=== PATIENT | male | born 1930 | race Caucasian/White ===

== ENCOUNTER 2020-02-29 17:33 | Inpatient (IN) ==
[2020-02-29] MEDS ORDERED: *HR* Metoprolol 5 MG/5 ML VIAL IVP ONE ×2 (18:34→20:37)
[2020-02-29 18:36] LABS: Basophils % 0.3 %; Eosinophils # 0.1 K/mcL (0.0-0.6); Eosinophils % 2.3 %; Hematocrit 38.3 % (37.5-50.1); Hemoglobin 11.8 g/dL (12.9-16.9); Immature Granulocytes % 0.2 % (0-4); Lymphocytes # 1.3 K/mcL (0.6-4.6); Mean Corpuscular HGB Conc 30.8 g/dL (31.6-35.5); Mean Corpuscular Hemoglobin 30.2 pg (28.0-33.3); Mean Platelet Volume 9.7 fL (9.4-12.4); Monocytes # 0.6 K/mcL (0.0-1.3); Monocytes % 10.3 %; Neutrophils # 3.7 K/mcL (1.6-8.9); Platelet Count 162 K/mcL (140-400); Red Blood Count 3.91 M/mcL (4.19-5.50); Red Cell Distribution Width 13.2 % (11.5-14.5); Segmented Neutrophils % 63.9 %; White Blood Count 5.8 K/mcL (4.3-11.1)
[2020-02-29 18:39] LABS: Prothrombin Time 11.1 Seconds (9.4-12.1)
[2020-02-29 18:42] LABS: Activated Partial Thrombo Time 25.8 Seconds (26.0-36.0)
[2020-02-29 18:58] LABS: Albumin 3.7 g/dL (3.5-5.7); Albumin/Globulin Ratio 1.4 (1.1-2.2); Bilirubin,Direct 0.1 mg/dL (0.0-0.2); Bilirubin,Indirect 0.4 mg/dL (0.0-1.0); Bilirubin,Total 0.5 mg/dL (0.3-1.0); Calcium 8.7 mg/dL (8.6-10.3); Globulin 2.6 g/dL (2.4-3.5); Total Protein 6.3 g/dL (6.4-8.9); Troponin I 0.03 ng/mL (< 0.04)
[2020-02-29 20:09] LABS: Bilirubin,Urine Negative (Negative); Blood,Urine Negative (Negative); Clarity,Urine Clear (Clear); Color,Urine Yellow (Yellow); Glucose,Urine (UA) Normal (Normal); Ketones,Urine Negative (Negative); Leukocyte Esterase,Urine Negative (Negative); Nitrite,Urine Negative (Negative); PH,Urine 6.5 pH Units (5.0-8.0); Protein,Urine Trace mg/dL (Neg-Trace); Specific Gravity,Urine 1.025 (1.010-1.025)
[2020-02-29] MEDS ORDERED: Morphine Sulfate 2 MG/ML SYRINGE IVP ONE (21:13)
[2020-02-29] MEDS ORDERED: Naloxone 0.4 MG/ML INJ IVP PRN (21:53)
[2020-02-29] MEDS: niCARdipine 20 MG/200 ML MLS IVC SCH (23:11)
[2020-03-01] MEDS: Carbidopa/Levodopa 25/100 TABLET PO SCH ×3 (00:13→20:46)
[2020-03-01] MEDS: *HR* OxyCODONE Immed Rel 15 MG TABLET PO PRN ×4 (00:45→20:46)
[2020-03-01] MEDS: niCARdipine 20 MG/200 ML MLS IVC SCH ×4 (01:02→18:51)
[2020-03-01 01:05] LABS: Potassium,Urine 25.9 mEq/L; Sodium, Urine 159.6 mEq/L
[2020-03-01 01:31] LABS: Magnesium 1.6 mg/dL (1.6-2.6); Phosphorous 3.5 mg/dL (2.7-4.5)
[2020-03-01] MEDS ORDERED: Magnesium Sulfate 1 GM/102 ML PIGGYBACK IVPB ONE (01:39)
[2020-03-01] MEDS ORDERED: 0.9 % Sodium Chloride 1,000 ML IVC SCH (01:45)
[2020-03-01] MEDS ORDERED: Melatonin 3 MG TABLET PO PRN (04:23)
[2020-03-01] MEDS: Acetaminophen 325 MG TABLET PO PRN ×2 (04:40→11:20)
[2020-03-01 05:04] LABS: Basophils % 0.2 %; Eosinophils # 0.1 K/mcL (0.0-0.6); Eosinophils % 2.6 %; Hematocrit 35.1 % (37.5-50.1); Hemoglobin 10.9 g/dL (12.9-16.9); Immature Granulocytes % 0.2 % (0-4); Mean Corpuscular HGB Conc 31.1 g/dL (31.6-35.5); Mean Corpuscular Hemoglobin 29.9 pg (28.0-33.3); Mean Corpuscular Volume 96.4 fL (83.0-100.0); Mean Platelet Volume 9.4 fL (9.4-12.4); Monocytes # 0.6 K/mcL (0.0-1.3); Monocytes % 10.7 %; Neutrophils # 3.7 K/mcL (1.6-8.9); Platelet Count 145 K/mcL (140-400); Red Blood Count 3.64 M/mcL (4.19-5.50); Red Cell Distribution Width 12.9 % (11.5-14.5); Segmented Neutrophils % 67.3 %; White Blood Count 5.4 K/mcL (4.3-11.1)
[2020-03-01 05:23] LABS: BUN/Creatinine Ratio 15 (6-26); Blood Urea Nitrogen 20 mg/dL (8-23); Calcium 8.8 mg/dL (8.6-10.3); Carbon Dioxide 33 mEq/L (23-29); Chloride 97 mEq/L (98-107); Glucose 95 mg/dL (70-105); Osmolality,Calculated 278 (280-300); Potassium 4.5 mEq/L (3.5-5.1); Sodium 133 mEq/L (136-145); eGFR For African Americans > 60 (> 60); eGFR For Non-African Americans 51 (> 60)
[2020-03-01] MEDS: *HR* Heparin 5,000 UNIT/ML VIAL SQ SCH ×3 (05:23→20:52)
[2020-03-01 05:24] LABS: % Iron Saturation 27 % (20-55); Iron 85 mcg/dL (65-175); Transferrin 223 mg/dL (203-362)
[2020-03-01 05:42] LABS: Ferritin 48 ng/mL (20-250)
[2020-03-01 05:48] LABS: Folate 11.2 ng/mL (3.0-16.0)
[2020-03-01] MEDS: amLODIPine 5 MG TABLET PO SCH (14:35)
[2020-03-01] MEDS ORDERED: Isovue-370 500 ML BOTTLE IVP ONE (14:50)
[2020-03-01] MEDS: hydrALAZINE 25 MG TABLET PO SCH (18:52)
[2020-03-02 01:28] LABS: Basophils % 0.2 %; Eosinophils # 0.1 K/mcL (0.0-0.6); Eosinophils % 2.6 %; Hemoglobin 10.8 g/dL (12.9-16.9); Immature Granulocytes % 0.2 % (0-4); Lymphocytes # 0.8 K/mcL (0.6-4.6); Lymphocytes % 16.6 %; Mean Corpuscular HGB Conc 31.8 g/dL (31.6-35.5); Mean Corpuscular Hemoglobin 30.3 pg (28.0-33.3); Mean Corpuscular Volume 95.5 fL (83.0-100.0); Mean Platelet Volume 9.8 fL (9.4-12.4); Monocytes # 0.5 K/mcL (0.0-1.3); Monocytes % 10.7 %; Neutrophils # 3.5 K/mcL (1.6-8.9); Platelet Count 150 K/mcL (140-400); Red Blood Count 3.56 M/mcL (4.19-5.50); Red Cell Distribution Width 12.8 % (11.5-14.5); Segmented Neutrophils % 69.7 %; White Blood Count 5.1 K/mcL (4.3-11.1)
[2020-03-02] MEDS: hydrALAZINE 25 MG TABLET PO SCH ×2 (01:30→09:16)
[2020-03-02 01:48] LABS: BUN/Creatinine Ratio 14 (6-26); Blood Urea Nitrogen 17 mg/dL (8-23); Calcium 8.6 mg/dL (8.6-10.3); Carbon Dioxide 28 mEq/L (23-29); Chloride 94 mEq/L (98-107); Glucose 82 mg/dL (70-105); Magnesium 1.5 mg/dL (1.6-2.6); Osmolality,Calculated 273 (280-300); Phosphorous 3.3 mg/dL (2.7-4.5); Potassium 4.4 mEq/L (3.5-5.1); Sodium 131 mEq/L (136-145); eGFR For African Americans > 60 (> 60); eGFR For Non-African Americans 56 (> 60)
[2020-03-02] MEDS: *HR* Heparin 5,000 UNIT/ML VIAL SQ SCH ×2 (05:31→13:50)
[2020-03-02] MEDS: *HR* OxyCODONE Immed Rel 15 MG TABLET PO PRN ×2 (05:31→11:24)
[2020-03-02] MEDS: niCARdipine 20 MG/200 ML MLS IVC SCH ×3 (09:11→09:56)
[2020-03-02] MEDS: Carbidopa/Levodopa 25/100 TABLET PO SCH (09:17)
[2020-03-02] MEDS: amLODIPine 5 MG TABLET PO SCH (09:17)
[2020-03-02 11:49] VITALS: BP 130/62
[2020-03-02] MEDS ORDERED: Saline Nasal Spray 44 ML BOTTLE NS PRN (11:55)
== END 2020-03-02 15:33 | disposition home health service (06) | DRG 305 ==
LOC: EMEROOARM 17:33 → ICNU 17:33 → SUATTDRO 03-01 15:06 → 2NNU 03-01 19:46
PROVIDERS: ADMIT Family Medicine; ATTEND Internal Medicine